=== PATIENT | male | born 1980 | race African-American/Black ===

== ENCOUNTER 2017-12-10 20:13 | Emergency (ER) | payer OTHER ==
[2017-12-10] MEDS: GENTAMICIN 0.3% OPHTH SOL 5 ML BTL OD (23:34)
[2017-12-10] MEDS: guaiFENesin/CODEINE SYRUP 5 ML UDC PO (23:45)
== END 2017-12-10 23:52 | disposition home or self-care (01) ==
LOC: M ED 20:13
DX: J06.9 Acute upper respiratory infection, unspecified (principal); H10.9 Unspecified conjunctivitis; H66.91 Otitis media, unspecified, right ear; J45.909 Unspecified asthma, uncomplicated
CPT/HCPCS: 71046

== ENCOUNTER → 2018-01-15 | Outpatient (CLI) | payer OTHER | LOC: M SLEEP 20:00 | DX: R06.83 Snoring (principal) ==